=== PATIENT | male | born 1940 | race Caucasian/White ===

== ENCOUNTER 2016-10-18 05:51 | Day surgery (SDC) | payer MEDICARE, BC ==
[2016-10-18] MEDS ORDERED: LACTATED RINGERS 1,000 ML ONE (06:09)
[2016-10-18 08:31] VITALS: BP 124/83; TEMP 98.2; O2SAT 99
[2016-10-18] MEDS ORDERED: MIDAZOLAM INJ 5 MG/5 ML VIAL ONE (09:05)
[2016-10-18] MEDS ORDERED: fentaNYL CITRATE INJ 50 MCG/ML AMP ONE (09:05)
--- NOTE | 2016-10-18 10:18 | OP ---
DATE OF PROCEDURE: 10/18/16 PREOPERATIVE DIAGNOSIS: 1. Fecal occult blood positive stool. POSTOPERATIVE DIAGNOSIS: 1. Internal hemorrhoids. 2. Diverticulosis. 3. Rectal polyps. PROCEDURE: 1. Colonoscopy plus polypectomy. SURGEON: Swapnil Macias MD. COMPLICATIONS: None apparent. BLOOD LOSS: None. MEDICATIONS: Monitored anesthesia care. DESCRIPTION OF PROCEDURE: Informed consent was obtained prior to sedation. The preprocedure cardiopulmonary assessment was satisfactory. The patient was placed in the left lateral decubitus position and was sedated. A digital rectal exam does not reveal any rectal masses. The tip of the Olympus colonoscope was inserted in the rectum and guided over to the cecum. The cecum was identified by locating the ileocecal valve and appendiceal orifice. Prep was good. The mucosa of the cecum, ascending colon, hepatic flexure, transverse colon, splenic flexure, descending colon and sigmoid colon was closely examined. Direct and retroflexed views of the rectum were obtained. The patient had internal hemorrhoids. The patient has diverticulosis involving the ascending colon, descending colon and sigmoid colon. The patient also had a 4 mm midrectal polyp that was removed with a cold snare and recovered. The procedure was then terminated. ENDOSCOPIC FINDINGS: 1. Internal hemorrhoids. 2. Diverticulosis. 3. Rectal polyp. RECOMMENDATIONS: Followup polyp pathology. #[id number] cc: Chemo Enciso MD MTD[facility]idal
[2016-10-18] MEDS ORDERED: PROPOFOL 200 MG/20 ML VIAL IV ONE (11:00)
[2016-10-18] MEDS ORDERED: LIDOCAINE 1% 10 ML VIAL INJ ONE (11:00)
== END 2016-10-18 10:20 | disposition home or self-care (01) ==
LOC: AMB 05:51
PROVIDERS: ATTEND Internal Medicine Gastroenterology
DX: R19.5 Other fecal abnormalities (principal); D12.8 Benign neoplasm of rectum; K57.30 Diverticulosis of large intestine without perforation or abscess without bleeding; K64.8 Other hemorrhoids; I10 Essential (primary) hypertension; E78.5 Hyperlipidemia, unspecified; Z79.899 Other long term (current) drug therapy
CPT/HCPCS: 00810; 45385; 88305; J2250; J3010; J3490; J7120

== ENCOUNTER → 2017-01-22 | Outpatient (CLI) | payer MEDICARE, BC | END | disposition home or self-care (01) | LOC: GMAB 11:18 | PROVIDERS: ATTEND Family Medicine | DX: E78.2 Mixed hyperlipidemia (principal); I10 Essential (primary) hypertension; Z12.5 Encounter for screening for malignant neoplasm of prostate; G47.62 Sleep related leg cramps | CPT/HCPCS: 83735; 84443; G0103 ==

== ENCOUNTER → 2018-02-06 | Outpatient (CLI) | payer MEDICARE, BC | LOC: GMAE 12:45 | PROVIDERS: ATTEND Family Medicine | DX: I10 Essential (primary) hypertension (principal) ==

== ENCOUNTER → 2019-02-17 | Outpatient (CLI) | payer MEDICARE, BC | LOC: GMAE 10:43 | PROVIDERS: ATTEND Family Medicine | DX: I10 Essential (primary) hypertension (principal); Z12.5 Encounter for screening for malignant neoplasm of prostate | CPT/HCPCS: 84443; G0103 ==

== ENCOUNTER → 2019-02-27 | Outpatient (CLI) | payer MEDICARE, BC ==
--- NOTE | 2019-02-27 11:38 | RAD ---
Frontal, lateral, and oblique views of the right wrist. Indication: PAIN IN RIGHT WRIST Comparison: None. 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 Chronic fracture and truncation of the proximal scaphoid pole suspected. 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 Severe osteoarthritis at the lunate-capitate joint and lunate-hamate joint. Type II lunate. Chondrocalcinosis TFC. No acute fracture identified. Evaluation for fracture is limited given the degree of osteopenia. If high clinical concern for acute fracture, correlation with MRI recommended given its greater sensitivity in the osteopenic patient. If the patient cannot tolerate MRI imaging or more urgent imaging is required, CT could be performed, however it is less sensitive in the osteopenic patient when compared to MRI. Moderate osteoarthritis second MCP joint with mild changes first MCP joint. Osteopenia. If this is a new finding, DEXA scan recommended as well as evaluation for possible osteoporosis treatment. Electronically signed by: Shane Pozo MD 02/27/2019 11:37 AM [facility]
--- NOTE | 2019-02-27 11:41 | RAD ---
EXAM DESCRIPTION: Wrist,Left 3 Views CLINICAL HISTORY: PAIN IN LEFT WRIST COMPARISON: None FINDINGS: 3 views of the left wrist. No acute fracture, dislocation or aggressive bone lesion is present. 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 Scapholunate widening with proximal migration of the capitate. Calcium pyrophosphate dihydrate deposition disease is present. Low bone density suspected. IMPRESSION: Severe osteoarthritic deformity of the wrist. No acute bony pathology. Electronically signed by: Dada Yuen MD 02/27/2019 11:39 AM [facility]
== END ==
LOC: RAD 08:01
PROVIDERS: ATTEND Orthopaedic Surgery
DX: M19.031 Primary osteoarthritis, right wrist (principal); M11.231 Other chondrocalcinosis, right wrist; M85.831 Other specified disorders of bone density and structure, right forearm; M19.032 Primary osteoarthritis, left wrist

== ENCOUNTER 2019-03-05 05:27 | Day surgery (SDC) | payer MEDICARE, BC ==
[2019-03-05] MEDS ORDERED: PROPOFOL 200 MG/20 ML VIAL IV ONE (05:28)
[2019-03-05] MEDS ORDERED: LIDOCAINE 1% 10 ML VIAL INJ ONE ×3 (05:28→09:12)
[2019-03-05] MEDS ORDERED: ceFAZolin SODIUM 1 GM VIAL ONE ×2 (08:47→09:04)
[2019-03-05] MEDS ORDERED: LACTATED RINGERS 1,000 ML ONE (08:47)
[2019-03-05] MEDS ORDERED: SODIUM CHL 0.9% 100ML MINI-BAG 100 ML IVPB ONE (08:47)
[2019-03-05] MEDS ORDERED: fentaNYL CITRATE INJ 50 MCG/ML AMP ONE (08:48)
[2019-03-05] MEDS ORDERED: MIDAZOLAM INJ 2 MG/2 ML VIAL ONE (08:48)
[2019-03-05] MEDS ORDERED: LACTATED RINGERS 1,000 ML IVS ONE (08:50)
[2019-03-05] MEDS ORDERED: BUPIVACAINE 0.25% INJ 30 ML VIAL INJ ONE ×2 (09:03→09:12)
[2019-03-05] MEDS ORDERED: VANCOMYCIN HCL INJ 1,000 MG VIAL IVPB ONE ×2 (09:04→09:12)
[2019-03-05] MEDS ORDERED: ceFAZolin SODIUM 1 GM VIAL INJ ONE (09:12)
[2019-03-05 11:06] VITALS: BP 140/85; TEMP 97.7; O2SAT 98
--- NOTE | 2019-03-06 08:21 | OP ---
DATE OF PROCEDURE: 03/05/19 PREOPERATIVE DIAGNOSIS: 1. Carpal tunnel syndrome. POSTOPERATIVE DIAGNOSIS: 1. Carpal tunnel syndrome. PROCEDURE: 1. Carpal tunnel release. SURGEON: Marbin Ochoa MD. MATTRESS INSPECTOR: Nestor Colon CST, SA-Lori. ANESTHESIA: Local with sedation. COMPLICATIONS: None. FINDINGS: 1. Thickening of the transverse carpal ligament. 2. Narrowing of the median nerve across the carpal tunnel. INDICATION: Mr. Palmer has a history of severe hand pain that has been refractory to conservative measures. Because of his ongoing pain and numbness, he has requested operative intervention. After discussing the risks, benefits and alternatives to that, the patient has given informed consent for that. PROCEDURE: The patient was brought to the Operating Room and placed in the supine position. Sedation was administered and local anesthetic was injected into the operative area under sterile conditions. After the injection of anesthetic, the arm was sterilely prepped and draped. A longitudinal incision was made directly overlying the transverse carpal ligament and blunt dissection was carried down to the ligament. The transverse carpal ligament was sharply transected along its length and a [place] elevator was used to ensure complete release of the ligament. Once release had been confirmed, the wound was thoroughly irrigated and the wound was closed with Nylon suture. A sterile dressing was placed and the patient was taken to the Day Surgery Unit. POSTOPERATIVE PLAN: The patient has been encouraged to do range of motion of the digits and will followup with us in two days. #[id number] [facility]
== END 2019-03-05 10:52 | disposition home or self-care (01) ==
LOC: AMB 05:27
PROVIDERS: ATTEND Orthopaedic Surgery
DX: G56.02 Carpal tunnel syndrome, left upper limb (principal); Z79.899 Other long term (current) drug therapy
CPT/HCPCS: 01810; 64721; 80307; 87070; J0690; J2250; J3370; J3490; J7050; J7120

== ENCOUNTER → 2020-03-26 | Outpatient (CLI) | payer MEDICARE, BC | LOC: GMAE 11:45 | PROVIDERS: ATTEND Family Medicine | DX: Z12.5 Encounter for screening for malignant neoplasm of prostate (principal); I10 Essential (primary) hypertension | CPT/HCPCS: 84443; G0103 ==